=== PATIENT | male | born 1950 | race Caucasian/White ===

== ENCOUNTER 2024-12-19 08:02 | Outpatient (CLI) | payer MEDICARE, BC, SELFPAY | END 2024-12-19 08:03 | disposition home or self-care (01) | PROVIDERS: PCP Physician Assistant; Visit Provider Family Medicine | DX: M54.16 Radiculopathy, lumbar region (principal); M51.26 Other intervertebral disc displacement, lumbar region; M51.369 Other intervertebral disc degeneration, lumbar region without mention of lumbar back pain or lower extremity pain | CPT/HCPCS: 64483; 64484; J1100; Q9966 ==

== ENCOUNTER 2025-01-11 10:07 | Outpatient (CLI) | payer MEDICARE, BC, SELFPAY ==
--- NOTE | 2025-01-11 10:15 | CRLHL7_ITS ---
For Patients: As a result of the Century Cures Act, medical imaging exams and procedure reports are released immediately into your electronic medical record. You may view this report before your referring provider. If you have questions, please contact your health care provider. CLINICAL INDICATION: Primary osteoarthritis of the right hip. COMPARISON IMAGING STUDIES: None. TECHNICAL: Axial, sagittal and coronal PDFS small field of view images of the right hip. Coronal and axial T1 and PDFS large field of view images of the entire pelvis. 1.5 [employer] MR scanner. FINDINGS: RIGHT HIP: Advanced degenerative arthrosis of the right hip. There is full-thickness femoral head and acetabular articular cartilage loss with prominent subchondral bone marrow edema. There is extensive degenerative acetabular labral tearing. Small right hip joint effusion with synovitis. LEFT HIP: Degenerative arthrosis of the left hip. There is subchondral cystic change involving the anterior superior and superolateral acetabulum related to grade 4 full-thickness cartilage loss. High-grade femoral head cartilage wear (grade 3). There is degenerative acetabular labral tearing. Paralabral cyst formation is present posterior superiorly. No significant left hip joint effusion. OSSEOUS STRUCTURES: Prominent periarticular bone marrow edema about the right hip in the setting of full-thickness grade 4 cartilage loss. No acute fracture. No avascular necrosis. MUSCULOTENDINOUS STRUCTURES AND BURSAE: On the left, there is moderate atrophy of the gluteus minimus muscle compatible with remote strain changes. No high-grade gluteal tendon tear on the right. No trochanteric bursal fluid collection on the right. Common hamstring tendons intact. Distal iliopsoas tendons are intact. No iliopsoas bursitis. OTHER FINDINGS: Degenerative changes of the spine and sacroiliac joints. INTRAPELVIC CONTENTS: Enlarged prostate. Colonic diverticulosis. Small fat containing inguinal hernias. IMPRESSION: 1. Advanced degenerative arthrosis of the right hip with extensive full-thickness cartilage loss and prominent subchondral bone marrow edema (grade 4). Extensive degenerative labral tearing. Small right hip joint effusion with synovitis. 2. Advanced degenerative arthrosis of the left hip. 3. No acute fracture or AVN. 4. Moderate atrophy of the left gluteus minimus muscle compatible with remote strain changes. 5. Degenerative changes of the spine and sacroiliac joints. 6. Enlarged prostate. Dictated by Ari Dugan MD @ 01/11/2025 3:36:11 PM (Electronically Signed)
== END 2025-01-11 10:08 | disposition home or self-care (01) ==
LOC: MRI 10:09
PROVIDERS: PCP Physician Assistant; Visit Provider Physician Assistant
DX: M16.11 Unilateral primary osteoarthritis, right hip (principal); M25.451 Effusion, right hip; N40.0 Benign prostatic hyperplasia without lower urinary tract symptoms
CPT/HCPCS: 73721

== ENCOUNTER 2025-02-14 14:00 | Outpatient (RCR) | payer MEDICARE, BC, SELFPAY | END 2025-06-14 23:59 | disposition home or self-care (01) | PROVIDERS: PCP Physician Assistant; Visit Provider Family Medicine | DX: M25.551 Pain in right hip (principal); M25.552 Pain in left hip; G89.29 Other chronic pain; M54.16 Radiculopathy, lumbar region; Z51.89 Encounter for other specified aftercare | CPT/HCPCS: 97110; 97140; 97162; 97535 ==